=== PATIENT | female | born 1995 | race Caucasian/White ===

== ENCOUNTER 2022-02-09 08:00 | Outpatient (CLI) | payer OTHER ==
[2022-02-09 19:33] LABS: BACTERIAL VAGINOSIS DNA NEGATIVE (NEGATIVE); CANDIDA GLABRATA DNA NEGATIVE (NEGATIVE); CANDIDA GROUP DNA NEGATIVE (NEGATIVE); CANDIDA KRUSEI DNA NEGATIVE (NEGATIVE); TRICHOMONAS VAGINALIS DNA NEGATIVE (NEGATIVE)
== END 2022-02-09 23:59 | disposition home or self-care (01) ==
LOC: LAB.N 08:00
PROVIDERS: ATTEND Physician Assistant Medical
DX: R30.0 Dysuria (principal)
CPT/HCPCS: 81514; 87086

== ENCOUNTER 2023-08-18 08:00 | Outpatient (CLI) | payer OTHER | END 2023-08-18 23:59 | disposition home or self-care (01) | LOC: LAB 08:00 | PROVIDERS: ATTEND Physician Assistant Medical | DX: J02.9 Acute pharyngitis, unspecified (principal) | CPT/HCPCS: 87070; 87077 ==

== ENCOUNTER 2023-09-19 14:09 | Outpatient (CLI) | payer OTHER ==
--- NOTE | 2023-09-19 15:19 | XRAY Report ---
PROCEDURE: Ribs w/PA Chest 3+V RT INDICATIONS: RIB PAIN TECHNIQUE: 2 views of the ribs were acquired, along with a single view chest. COMPARISON: None. FINDINGS: Surgical changes and devices: None. Bones and chest wall: No fractures or dislocations. No suspicious bony lesions. Overlying soft tis sues appear unremarkable. Lungs and pleura: No pleural effusions or pneumothorax. Lungs appear clear. Mediastinum: Mediastinal contours appear normal. Heart size is normal. IMPRESSION: No displaced rib fracture or pneumothorax. Reviewed by: Randall Chase MD on 09/19/2023 3:18 PM PST Approved by: Randall Chase MD on 09/19/2023 3:18 PM PST Station ID: [id number]
== END 2023-09-19 14:10 | disposition home or self-care (01) ==
LOC: DI 14:09
PROVIDERS: ATTEND Family Medicine
DX: R07.81 Pleurodynia (principal); F41.9 Anxiety disorder, unspecified; Z83.438 Family history of other disorder of lipoprotein metabolism and other lipidemia; Z80.0 Family history of malignant neoplasm of digestive organs; Z82.49 Family history of ischemic heart disease and other diseases of the circulatory system